=== PATIENT | male | born 1995 ===

== ENCOUNTER 2017-11-01 18:37 | Emergency (ER) | payer BC ==
[2017-11-01 19:28] VITALS: BMI 23.3
[2017-11-01] MEDS ORDERED: Lidocaine 1% Inj (20ml) ONE (19:29)
--- NOTE | 2017-11-01 20:09 | ED PDOC ---
Arrival/HPI - General Chief Complaint: Abnormal Skin Integrity Time Seen by Provider: 11/01/17 19:44 Historian: Patient - History of Present Illness Narrative History of Present Illness (Text): 11/01/17 19:40 22 year old male, with no significant past medical or surgical history, presents to the Emergency department complaining of left periorbital eyebrow laceration prior to arrival. Patient informs playing basketball with his friends when he ran into the ball sustaining the laceration. Patient denies any other trauma or loss of consciousness. Patient denies any headache, fever, chills, nausea, vomiting, diarrhea, abdominal pain, chest pain, shortness of breath, visual changes or any other complaints. Time/Duration: Prior to Arrival Symptom Onset: Sudden Activities at Onset: Other (playing basketball) Context: Street Past Medical History - Provider Review Nursing Documentation Reviewed: Yes - Psychiatric Hx Psychophysiologic Disorder: No Hx Substance Use: No Family/Social History - Physician Review Nursing Documentation Reviewed: Yes Family/Social History: No Known Family HX Smoking Status: Never Smoked Hx Alcohol Use: Yes Frequency of alcohol use: Socially Hx Substance Use: No Allergies/Home Meds Allergies/Adverse Reactions: Allergies No Known Allergies Allergy (Verified 11/01/17 19:27) Review of Systems - Physician Review All systems were reviewed & negative as marked: Yes - Review of Systems Constitutional: Normal. absent: Fevers Eyes: Normal. absent: Vision Changes ENT: Other (left eyebrow laceration) Respiratory: Normal. absent: SOB Cardiovascular: Normal. absent: Chest Pain Gastrointestinal: Normal. absent: Abdominal Pain, Diarrhea, Nausea, Vomiting Genitourinary Male: Normal Musculoskeletal: Normal Skin: Normal Neurological: Normal Endocrine: Normal Hemo/Lymphatic: Normal Psychiatric: Normal Physical Exam Vital Signs Reviewed: Yes Temperature: Afebrile Blood Pressure: Normal Pulse: Regular Respiratory Rate: Normal Appearance: Positive for: Well-Appearing, Non-Toxic, Comfortable Pain Distress: None Mental Status: Positive for: Alert and Oriented X 3 - Systems Exam Head: Present: Atraumatic, Normocephalic Pupils: Present: PERRL Extroacular Muscles: Present: EOMI Conjunctiva: Present: Normal Neck: Present: Normal Range of Motion. No: MIDLINE TENDERNESS, Paraspinal Tenderness, JVD Respiratory/Chest: Present: Clear to Auscultation, Good Air Exchange. No: Respiratory Distress, Accessory Muscle Use Cardiovascular: Present: Regular Rate and Rhythm, Normal S1, S2. No: Murmurs Abdomen: No: Tenderness, Distention, Peritoneal Signs Back: Present: Normal Inspection Upper Extremity: Present: Normal Inspection. No: Cyanosis, Edema Lower Extremity: Present: Normal Inspection. No: Edema Neurological: Present: GCS=15, CN II-XII Intact, Speech Normal Skin: Present: Warm, Dry, Normal Color, Laceration (2cm laceration to left eybrow, no active bleeding). No: Rashes Psychiatric: Present: Alert, Oriented x 3, Normal Insight, Normal Concentration Medical Decision Making ED Course and Treatment: 11/01/17 19:50 Impression: 22 year old male presents to the Emergency department for left eyebrow laceration. Differential Diagnosis included but are not limited to: Laceration Plan: -- Laceration repair -- Reassess and disposition Progress Notes: 11/01/17 20:16 PROCEDURE: LACERATION REPAIR Performed by the emergency provider Location: Left periorbital eyebrow Length: 2 cm Description: clean wound edges Distal CMS: Normal. No deficits. Neurovascularly intact. Anesthesia: Lidocaine 1% Preparation: The wound was cleaned with saline and Bet[place]. The area was prepped and draped in the usual sterile fashion. Exploration: The wound was explored and no foreign bodies were found. Procedure: The wound was closed with uninterrupted nylon suture. There was good approximation. In total, 5 sutures were used. Post-Procedure: Good closure and hemostasis. The patient tolerated the procedure well and there were no complications. CSM remains intact. Post procedure dressing applied. - Medication Orders Current Medication Orders: Discontinued Medications Tetanus/Reduced Diphtheria/Acell Pertussis (Boostrix Vaccine Inj) 0.5 ml IM .ONCE ONE Stop: 11/01/17 20:16 Last Admin: 11/01/17 20:26 Dose: 0.5 ml MAR Immunization Data Document 11/01/17 20:26 RD (Rec: 11/01/17 20:26 RD [id number]) Immunization Data Vaccine Information Sheet Given Yes Vaccine Information Sheet Given Date 11/01/17 Immunization Registry Document 11/01/17 20:26 RD (Rec: 11/01/17 20:26 [id number]) Immunization Registry Consent Date 11/01/17 Disposition/Present on Arrival - Present on Arrival Any Indicators Present on Arrival: No History of DVT/PE: No History of Uncontrolled Diabetes: No Urinary Catheter: No History of Decub. Ulcer: No History Surgical Site Infection Following: None - Disposition Have Diagnosis and Disposition been Completed?: Yes Diagnosis: Laceration of face, Minor head injury Disposition: HOME/ ROUTINE Disposition Time: 06:30 Patient Plan: Discharge Condition: FAIR Discharge Instructions (ExitCare): Laceration Repair, Head Injury Observation ( DC) Additional Instructions: suture removal in 5-7 days Referrals: [facility] [Outside] - Follow up with primary PCP,NO [Primary Care Provider] - Follow up with primary Forms: [employer] (Upper Sorbian)
[2017-11-01] MEDS ORDERED: TDAP Vaccine 0.5 mL Syr IM ONE (20:15)
== END 2017-11-01 20:27 | disposition home or self-care (01) ==
LOC: ED 18:37
DX: S01.112A Laceration without foreign body of left eyelid and periocular area, initial encounter (principal); W21.05XA Struck by basketball, initial encounter; Y93.67 Activity, basketball; Y92.39 Other specified sports and athletic area as the place of occurrence of the external cause; Z23 Encounter for immunization

== ENCOUNTER 2017-11-08 14:13 | Emergency (ER) | payer BC ==
--- NOTE | 2017-11-08 14:57 | ED PDOC ---
Arrival/HPI - General Chief Complaint: Suture/Staple Removal Time Seen by Provider: 11/08/17 14:53 Historian: Patient - History of Present Illness Narrative History of Present Illness (Text): 11/08/17 14:54 22 year old male, with no significant past medical or surgical history, presents to the Emergency department for left periorbital eyebrow suture repair s/p laceration repair last Saturday. Patient reports that he tried to have stitches removed today at [facility] office but was told they could not do it. Patient denies any headache, fever, chills, nausea, vomiting, diarrhea, abdominal pain, chest pain, shortness of breath, visual changes or any other complaints. Time/Duration: Prior to Arrival Symptom Onset: Gradual Symptom Course: Improving Severity Level: 1 Activities at Onset: Rest Context: Home Past Medical History - Provider Review Nursing Documentation Reviewed: Yes - Travel History Have you recently traveled outside [place] w/in the past 3 mons?: No - Psychiatric Hx Psychophysiologic Disorder: No Hx Substance Use: No Family/Social History - Physician Review Nursing Documentation Reviewed: Yes Family/Social History: Unknown Family HX Smoking Status: Never Smoked Hx Alcohol Use: Yes Hx Substance Use: No Allergies/Home Meds Allergies/Adverse Reactions: Allergies No Known Allergies Allergy (Verified 11/08/17 14:56) Home Medications: Home Meds Medication Instructions Recorded Confirmed No Known Home Med 11/08/17 11/08/17 Review of Systems - Review of Systems Constitutional: Normal Eyes: Normal ENT: Normal Respiratory: Normal Cardiovascular: Normal Gastrointestinal: Normal Genitourinary Male: Normal Musculoskeletal: Normal Skin: Normal, Laceration (left superior periorb lac repair with 3 sutures) Neurological: Normal Endocrine: Normal Hemo/Lymphatic: Normal Psychiatric: Normal Physical Exam Vital Signs Reviewed: Yes Vital Signs Temp Pulse Resp BP Pulse Ox 11/08/17 15:16 98.1 F 62 18 139/77 99 Temperature: Afebrile Blood Pressure: Normal Pulse: Regular Respiratory Rate: Normal Appearance: Positive for: Well-Appearing, Non-Toxic, Comfortable Pain Distress: None Mental Status: Positive for: Alert and Oriented X 3 - Systems Exam Head: Present: Atraumatic, Laceration (left superior orbital aspect; brow) Pupils: Present: PERRL Neck: Present: Normal Range of Motion Respiratory/Chest: Present: Clear to Auscultation, Good Air Exchange. No: Respiratory Distress, Accessory Muscle Use Cardiovascular: Present: Regular Rate and Rhythm, Normal S1, S2. No: Murmurs Abdomen: No: Tenderness, Distention, Peritoneal Signs Back: Present: Normal Inspection Upper Extremity: Present: Normal Inspection. No: Cyanosis, Edema Lower Extremity: Present: Normal Inspection. No: Edema Neurological: Present: GCS=15, CN II-XII Intact, Speech Normal Skin: Present: Warm, Dry, Normal Color, Laceration (left superior periorb lac repair with 3 sutures). No: Rashes Psychiatric: Present: Alert, Oriented x 3, Normal Insight, Normal Concentration Medical Decision Making ED Course and Treatment: 11/08/17 14:58 Impression 22 year old male, with no significant past medical or surgical history, presents to the Emergency department for left periorbital eyebrow suture repair s/p laceration repair last Saturday. Plan 3 sutures removed without complications; pt tolerated the removal well with no blood loss; good approximation of edges and healing Instructed on wound care and dispo home Disposition/Present on Arrival - Present on Arrival Any Indicators Present on Arrival: Yes History of DVT/PE: No History of Uncontrolled Diabetes: No Urinary Catheter: No History Surgical Site Infection Following: None - Disposition Have Diagnosis and Disposition been Completed?: Yes Diagnosis: Visit for suture removal, Encounter for re-check of laceration wound Disposition: HOME/ ROUTINE Disposition Time: 14:59 Patient Plan: Discharge Condition: GOOD Discharge Instructions (ExitCare): Stitches Removal Additional Instructions: Roosevelt, if you experience any reddening or pus coming coming from the wound site, return to the ER for evaluation Thanks for letting us take care of you today! Be WellJASBIR Forms: [employer] (Pashto)
[2017-11-08 15:00] VITALS: BMI 22.8
[2017-11-08 15:17] VITALS: BP 139/77; PULSE 62; RESP 18; TEMP 98.1; O2SAT 99
== END 2017-11-08 15:15 | disposition home or self-care (01) ==
LOC: ED 14:13
DX: Z48.02 Encounter for removal of sutures (principal); Z51.89 Encounter for other specified aftercare